=== PATIENT | female | born 1965 | race Caucasian/White ===

== ENCOUNTER → 2020-12-15 | Outpatient (CLI) | payer BC ==
[~2020-12-15] MED LIST: ASPI-1 PO; METO50TA7 PO; OMEP40CA97 PO; OTEZ1TAB3 PO; PRIL20CA; SIMV40TA20 PO; TRAD5TAB PO; VALA500T5 PO
== END ==
LOC: M LABSMTC 10:24
PROVIDERS: ATTEND Internal Medicine Cardiovascular Disease
DX: Z01.812 Encounter for preprocedural laboratory examination (principal); Z20.822 Contact with and (suspected) exposure to COVID-19; I25.10 Atherosclerotic heart disease of native coronary artery without angina pectoris

== ENCOUNTER → 2021-05-02 | Outpatient (REF) | payer BC ==
[~2021-05-02] MED LIST changes: +OMEP40CA4 PO; -OMEP40CA97 PO
== END ==
LOC: M LAB REF 17:15
PROVIDERS: ATTEND Physician Assistant
DX: D48.5 Neoplasm of uncertain behavior of skin (principal)

== ENCOUNTER → 2021-07-25 | Outpatient (REF) | payer BC | LOC: M LAB REF 17:38 | PROVIDERS: ATTEND Physician Assistant | DX: L57.0 Actinic keratosis (principal) ==

== ENCOUNTER → 2022-03-18 | Outpatient (CLI) | payer BC ==
[~2022-03-18] MED LIST changes: +ACET650T61 PO; +ALPR0.25 PO; +ASPI-255 PO; +CLOP75TA2 PO; +EZET10TA21 PO; +GABA600T4 PO; +IBUP-1764 PO; +ILUM100S SC; +INSUHUMDS SC; +LEVOTAB10 PO; +METO1TAB7 PO; +OMEP1CAP73 PO; +PROAAER10 INH; +SPIR-10 PO; +TOUJ1.2I SC; +VICT18IN SC; +ZOCO80TA PO
== END ==
LOC: M LABSMTC 10:48
PROVIDERS: ATTEND Anesthesiology
DX: Z01.818 Encounter for other preprocedural examination (principal); Z11.52 Encounter for screening for COVID-19

== ENCOUNTER 2022-03-23 07:37 | Day surgery (SDC) | payer BC ==
[~2022-03-23] VITALS: Ht 165.1 cm; Wt 166.5 kg
[~2022-03-23 07:37] MED LIST changes: +NS 1,000 ML IV ONE
[2022-03-23] MEDS ORDERED: propofoL 200 MG/20 ML VIAL As Ordered ONE ×2 (09:20→09:21)
[2022-03-23] MEDS ORDERED: fentaNYL 100 MCG/2 ML INJECTION As Ordered ONE (09:21)
[2022-03-23] MEDS ORDERED: LIDOCAINE 2% 100MG/5ML SDV (FOR ANES.) As Ordered ONE (09:21)
[2022-03-23 10:05] VITALS: BP 136/62
== END 2022-03-23 10:08 | disposition home or self-care (01) ==
LOC: M OPP 07:37
PROVIDERS: ATTEND Internal Medicine Gastroenterology
DX: Z12.11 Encounter for screening for malignant neoplasm of colon (principal); Z86.010 Personal history of colon polyps; K57.30 Diverticulosis of large intestine without perforation or abscess without bleeding; K64.8 Other hemorrhoids; K31.89 Other diseases of stomach and duodenum; Z01.818 Encounter for other preprocedural examination; E66.01 Morbid (severe) obesity due to excess calories; Z79.1 Long term (current) use of non-steroidal anti-inflammatories (NSAID); Z79.02 Long term (current) use of antithrombotics/antiplatelets; Z79.4 Long term (current) use of insulin; Z79.82 Long term (current) use of aspirin; Z79.899 Other long term (current) drug therapy; Z88.8 Allergy status to other drugs, medicaments and biological substances; Z91.041 Radiographic dye allergy status; Z87.891 Personal history of nicotine dependence
CPT/HCPCS: 43239; 45385; 88305; J3010

== ENCOUNTER → 2022-12-07 | Outpatient (REF) | payer BC ==
[~2022-12-07] MED LIST changes: +APRE30TA3 PO; -NS 1,000 ML IV ONE; -OTEZ1TAB3 PO
[2022-12-07 16:54] LABS: BASO # 0.1 10^3/uL (0.0-0.2); BASO % 0.5 % (0.0-1.0); EOS # 0.1 10^3/uL (0.0-0.5); EOS % 1.3 % (0.0-3.0); HEMATOCRIT 46.8 % (36.0-47.0); LYMPH # 2.3 10^3/uL (1.5-5.0); LYMPH % 22.3 % (24.0-44.0); MEAN CORPUSCULAR HGB CONC 32.1 g/dl (32.0-36.5); MEAN CORPUSCULAR VOLUME 96.7 fl (80.0-96.0); MONO # 0.6 10^3/uL (0.0-0.8); NEUTROPHILS # 7.1 10^3/uL (1.5-8.5); NEUTROPHILS % 69.7 % (36.0-66.0); PLATELET COUNT, AUTOMATED 284 10^3/uL (150-450); RED BLOOD COUNT 4.84 10^6/uL (4.00-5.40); WHITE BLOOD COUNT 10.2 10^3/uL (4.0-10.0)
[2022-12-07 16:55] LABS: APPEARANCE, URINE MANUAL CLEAR (CLEAR); BILIRUBIN, URINE MANUAL NEGATIVE (NEGATIVE); BLOOD URINE MANUAL NEGATIVE (NEGATIVE); COLOR, URINE MANUAL YELLOW (YELLOW); GLUCOSE, URINE (UA) MANUAL NEGATIVE (NEGATIVE); LEUKOCYTE ESTERASE, URINE MAN NEGATIVE (NEGATIVE); NITRITE, URINE MANUAL NEGATIVE (NEGATIVE); PROTEIN, URINE MANUAL NEGATIVE (NEGATIVE); UROBILINOGEN, URINE MANUAL NORMAL (NORMAL)
[2022-12-07 16:56] LABS: KETONE, URINE MANUAL 1+ mg/dL (NEGATIVE)
[2022-12-07 17:05] LABS: ERYTHROCYTE SEDIMENTATION RATE 70 mm/hr (0-30)
[2022-12-07 17:10] LABS: TOTAL PROTEIN,RANDOM URINE 18.2 MG/DL (0.0-14.0)
[2022-12-07 17:15] LABS: COMPLEMENT C3 191.9 MG/DL (90.0-170.0); CREATININE,RANDOM URINE 102.4 MG/DL
[2022-12-07 17:59] LABS: C REACTIVE PROTEIN QUANTITATIV 0.5 MG/DL (<1.0)
== END ==
LOC: M SFHCRHEU 15:13
PROVIDERS: ATTEND Internal Medicine
DX: M06.4 Inflammatory polyarthropathy (principal); N96 Recurrent pregnancy loss

== ENCOUNTER → 2025-01-10 | Outpatient (REF) | payer BC ==
[~2025-01-10] MED LIST changes: +GABA-1490 PO; -GABA600T4 PO
== END ==
LOC: M SFHCDERM 17:47
PROVIDERS: ATTEND Physician Assistant
DX: L57.0 Actinic keratosis (principal); L57.8 Other skin changes due to chronic exposure to nonionizing radiation; L98.499 Non-pressure chronic ulcer of skin of other sites with unspecified severity

== ENCOUNTER 2025-05-14 08:00 | Day surgery (SDC) | payer BC ==
[~2025-05-14] VITALS: Ht 162.6 cm; Wt 87.1 kg
[~2025-05-14 08:00] MED LIST changes: +ASPI81TA26 PO; +ISOS1TAB35 PO; +LIDO5TD TOP; +PROA1AER2 IN; +ROSU20TA86 PO; +TIRZ12.5 SQ
[2025-05-14] MEDS ORDERED: MIDAZOLAM INJ 2 MG/2 ML VIAL As Ordered ONE (08:04)
[2025-05-14] MEDS ORDERED: LIDOCAINE 2% 100 MG/5 ML SDV (FOR ANES.) As Ordered ONE (08:04)
[2025-05-14] MEDS ORDERED: ROCURONIUM BROMIDE 50MG/5ML VIAL As Ordered ONE (08:04)
[2025-05-14] MEDS ORDERED: LR 1,000 ML IV SCH (09:35)
[2025-05-14] MEDS: ALBUTEROL SULFATE 2.5 MG/0.5 ML INH CONCENTRATE NEB SOLN NEB ONE (10:05)
[2025-05-14] MEDS ORDERED: METHYLENE BLUE 0.5% (5 MG/ML) 10 ML AMP As Ordered ONE (10:32)
[2025-05-14] MEDS ORDERED: EPINEPHrine 1 MG/ML INJ 30 ML MD-VIAL As Ordered ONE (10:32)
[2025-05-14] MEDS ORDERED: LIDOCAINE W/EPINEPHrine 1% 20 ML VIAL As Ordered ONE (10:32)
[2025-05-14] MEDS: MIDAZOLAM INJ 2 MG/2 ML VIAL IV ONE (10:41)
[2025-05-14] MEDS ORDERED: ACETAMINOPHEN 1000MG/100ML IV BAG As Ordered ONE (11:02)
[2025-05-14] MEDS ORDERED: ONDANSETRON 4MG 2ML VIAL As Ordered ONE (11:07)
[2025-05-14] MEDS ORDERED: KETOROLAC 30 MG/ML 1 ML VIAL As Ordered ONE (11:07)
[2025-05-14] MEDS ORDERED: DESFLURANE 240 ML INHALANT As Ordered ONE (11:17)
[2025-05-14] MEDS ORDERED: ONDANSETRON 4MG 2ML VIAL IV PRN (11:35)
[2025-05-14] MEDS ORDERED: MORPHINE 2 MG/ML 1 ML VIAL IV PRN (11:35)
[2025-05-14 12:20] VITALS: BP 114/59; TEMP 97.2; O2SAT 98
== END 2025-05-14 12:41 | disposition home or self-care (01) ==
LOC: M SDC 08:00
PROVIDERS: ATTEND Otolaryngology
DX: J34.89 Other specified disorders of nose and nasal sinuses (principal); I25.10 Atherosclerotic heart disease of native coronary artery without angina pectoris; I10 Essential (primary) hypertension; E11.9 Type 2 diabetes mellitus without complications; J45.909 Unspecified asthma, uncomplicated; I25.2 Old myocardial infarction; E78.00 Pure hypercholesterolemia, unspecified; G47.33 Obstructive sleep apnea (adult) (pediatric); Z79.899 Other long term (current) drug therapy; Z79.82 Long term (current) use of aspirin; K21.9 Gastro-esophageal reflux disease without esophagitis; L40.9 Psoriasis, unspecified; Z95.5 Presence of coronary angioplasty implant and graft; Z98.84 Bariatric surgery status; Z90.49 Acquired absence of other specified parts of digestive tract; Z90.89 Acquired absence of other organs
CPT/HCPCS: 30117; 88305; J0131; J1885; J2250; J2405; J2765; J3010